=== PATIENT | female | born 1975 | race Caucasian/White ===

== ENCOUNTER 2016-09-15 10:38 | Emergency (ER) | payer BC ==
[~2016-09-15] VITALS: Ht 165.1 cm; Wt 78.2 kg
[2016-09-15 10:49] VITALS: BP 110/80; PULSE 77; RESP 15; TEMP 97.7; O2SAT 100
--- NOTE | 2016-09-15 11:02 | PD ---
HPI Chief Complaint: Cardiac Complaint Time Seen by Provider: 10:44 Travel History International Travel<30 days: No Contact w/Intl Traveler<30days: No Traveled to known affect area: No History of Present Illness HPI 41-year-old at 40 weeks and 3 days presents with palpitations and episode of SVT with the ambulance team. She was given 6 mg of adenosine and then an additional 12 mg of adenosine but this did not convert her rate. While I was talking with the patient she self converted and is now back in sinus rhythm. She now is denying any complaints. She states specifically she has no abdominal pain, vaginal bleeding, loss of fluids or other concerns. She states Dr. Rosales is her patient support assistant. She states Dr. diaz is her tax staff accountant. She states she is scheduled to have a this Tuesday. She states she is on metoprolol to help control her symptoms. PFSH Past Medical History Cardiovascular Problems: Yes (SVT ) ?: Past Surgical History Other Surgery: Yes () Social History Tobacco Use: No Allergies-Medications (Allergen,Severity, Reaction): Coded Allergies: Penicillin (Verified Allergy, Intermediate, Swelling, 09/15/16) JOINTS SWELL Sulfa (Verified Allergy, Intermediate, Swelling, 09/15/16) JOINTS SWELL Codeine (Verified Allergy, Mild, Itching, 09/15/16) Reported Meds & Prescriptions Reported Meds & Active Scripts Active Reported Metoprolol Tartrate 25 Mg Tab 25 Mg PO TID Review of Systems Except as stated in HPI: all other systems reviewed are Neg Physical Exam Narrative GENERAL: Well-nourished, well-developed patient. SKIN: Warm and dry. HEAD: Normocephalic and atraumatic. EYES: No injection or drainage. ENT: No nasal drainage noted. NECK: Supple, trachea midline. CARDIOVASCULAR: Regular rate and rhythm RESPIRATORY: Breath sounds equal bilaterally at apices. No accessory muscle use. GASTROINTESTINAL: Abdomen soft, non-tender, gravid uterus NEUROLOGICAL: Awake and alert. Motor and sensory grossly within normal limits. Normal speech. Data Data Last Documented VS Vital Signs Date Time Temp Pulse Resp B/P Pulse Ox O2 Delivery O2 Flow Rate FiO2 09/15/16 11:07 288 15 100 Nasal Cannula 2 09/15/16 11:07 96/70 09/15/16 10:49 97.7 Orders Complete Blood Count With Diff (09/15/16 10:46) Basic Metabolic Panel (Bmp) (09/15/16 10:46) Urinalysis - C+S If Indicated (09/15/16 10:46) Iv Access Insert/Monitor (09/15/16 10:46) Ecg Monitoring (09/15/16 10:46) Heart Tones (09/15/16 10:46) Magnesium (Mg) (09/15/16 10:46) Phosphorus (Po4) (09/15/16 10:46) Potassium Chloride Eff ([place] Cl Eff) (09/15/16 12:30) Labs Laboratory Tests Test 09/15/16 09/15/16 10:45 11:35 White Blood Count 5.8 TH/MM3 Red Blood Count 4.45 MIL/MM3 Hemoglobin 12.6 GM/DL Hematocrit 37.5 % Mean Corpuscular Volume 84.2 FL Mean Corpuscular Hemoglobin 28.4 PG Mean Corpuscular Hemoglobin 33.7 % Concent Red Cell Distribution Width 19.2 % Platelet Count 198 TH/MM3 Mean Platelet Volume 8.1 FL Neutrophils (%) (Auto) 52.7 % Lymphocytes (%) (Auto) 37.6 % Monocytes (%) (Auto) 8.4 % Eosinophils (%) (Auto) 0.7 % Basophils (%) (Auto) 0.6 % Neutrophils # (Auto) 3.1 TH/MM3 Lymphocytes # (Auto) 2.2 TH/MM3 Monocytes # (Auto) 0.5 TH/MM3 Eosinophils # (Auto) 0.0 TH/MM3 Basophils # (Auto) 0.0 TH/MM3 CBC Comment AUTO DIFF Differential Comment AUTO DIFF CONFIRMED Sodium Level 139 MEQ/L Potassium Level 3.3 MEQ/L Chloride Level 106 MEQ/L Carbon Dioxide Level 21.6 MEQ/L Anion Gap 11 MEQ/L Blood Urea Nitrogen 10 MG/DL Creatinine 0.87 MG/DL Estimat Glomerular Filtration 72 ML/MIN Rate Random Glucose 82 MG/DL Calcium Level 8.6 MG/DL Phosphorus Level 2.8 MG/DL Magnesium Level 1.9 MG/DL Urine Color YELLOW Urine Turbidity CLEAR Urine pH 6.5 Urine Specific [place] 1.011 Urine Protein TRACE mg/dL Urine Glucose (UA) NEG mg/dL Urine Ketones NEG mg/dL Urine Occult Blood NEG Urine Nitrite NEG Urine Bilirubin NEG Urine Urobilinogen LESS THAN 2.0 MG/DL Urine Leukocyte Esterase NEG Urine RBC LESS THAN 1 /hpf Urine WBC LESS THAN 1 /hpf Urine Squamous Epithelial <1 /hpf Cells Urine Hyaline Casts 3 /lpf Urine Mucus FEW /lpf Microscopic Urinalysis Comment CULT NOT INDICATED MDM Medical Decision Making Medical Screen Exam Complete: Yes Emergency Medical Condition: Yes Interpretation(s) CBC & BMP Diagram 09/15/16 10:45 EKG is sinus rhythm at [address] depression, aVR elevation Differential Diagnosis SVT, a flutter, A. fib, sinus tachycardia Narrative Course Patient arrived in SVT that converted to sinus rhythm as I was talking with patient. We'll check blood work and discuss with her patient support assistant. OB hospitalist came to bedside and states when patient medically cleared she can go upstairs for further monitoring potassium is 3.3, ordered 25meq and patient updated, no recurrence of svt, cleared for L&D monitoring Physician Communication Physician Communication dr rosales states patient's ST changes are related to prior tachycardia and no further testing needed dr morales saw patient in ed and states to send up for monitoring when cleared Diagnosis Primary Impression: SVT (supraventricular tachycardia) Additional Impression: Qualified Code: Z3A.40 - 40 weeks gestation of Patient Instructions: General Instructions Additional Instructions: follow with dr rosales-call to schedule Med/Other Pt SpecificInfo: No Change to Meds Disposition: 70 TRANSFER TO OTHER FACILITY (L&D) Condition: Stable Loni Fay MD Sep 15, 2016 11:02
[2016-09-15] MEDS ORDERED: METO25TA3 PO (11:06)
[2016-09-15 11:07] VITALS: BP 96/70; PULSE 84; RESP 15; O2SAT 100
--- NOTE | 2016-09-15 11:24 | PD.CONS ---
HPI Chief Complaint Palpitations Date Seen: Sep 15, 2016 Travel History International Travel<30 Days: No Contact w/Intl Traveler<30Days: No Known Affected Area: No History of Present Illness HPI 41 yo at 40w 3d, care with Dr. Larsen, presented to the Ed via EMS secondary to palpitations. Patient has a history of SVT. Presented in SVT , administered medications, but self converted. Patient reported SOB and some chest pain prior to presentation. Denies contractions/LOF/VB. Reports good FM. Para: 1 : 2 History Past Medical History Narrative Medical SVT Obstetric History Obstetric History C/S x 1 Past Surgical History Narrative Surgical C/S Family History Family History: Negative Social History Alcohol Use: No Tobacco Use: No Substance Abuse: No Allergies-Medications (Allergen,Severity, Reaction): Coded Allergies: Penicillin (Verified Allergy, Intermediate, Swelling, 09/15/16) JOINTS SWELL Sulfa (Verified Allergy, Intermediate, Swelling, 09/15/16) JOINTS SWELL Codeine (Verified Allergy, Mild, Itching, 09/15/16) Home Meds Reported Medications Metoprolol Tartrate 25 Mg Tab25 Mg PO TID #60 TAB Ref 0 09/15/16 Review of Systems Except as stated in HPI: all other systems reviewed are Neg Physical Exam Vital Signs Date Time Temp Pulse Resp B/P Pulse Ox O2 Delivery O2 Flow Rate FiO2 09/15/16 11:07 288 15 100 Nasal Cannula 2 09/15/16 11:07 84 15 96/70 100 Nasal Cannula 2 09/15/16 10:49 97.7 77 15 110/80 100 Narrative GENERAL: Well-nourished, well-developed patient. SKIN: Warm and dry. HEAD: Normocephalic and atraumatic. EYES: No scleral icterus. No injection or drainage. ENT: No nasal drainage noted. Mucous membranes pink. Airway patent. NECK: Supple, trachea midline. No JVD. CARDIOVASCULAR: Regular rate and rhythm without murmurs, gallops, or rubs. RESPIRATORY: Breath sounds equal bilaterally. No accessory muscle use. BREASTS: Bilateral exam showed no masses , no retractions, no nipple discharge. ABDOMEN/GI: Abdomen soft, non-tender, bowel sounds present, no rebound, no guarding Gravid to [-] weeks size Fundal Height: [-] GENITOURINARY: External Genitalia: intact and normal in appearance BUS glands: [-] Cervix: [-] Dilatation: [-] Effacement: [-] Station: [-] Presentation: [-] Membranes: [intact or ruptured] Uterine Contractions: [-] FHT's: Category: [140s per doppler] Baseline: [-] Reactive: [-] Variability: [-] Decels: [-] EXTREMITIES: No cyanosis or edema. BACK: Nontender without obvious deformity. No CVA tenderness. NEUROLOGICAL: Awake and alert. Motor and sensory grossly within normal limits. Five out of 5 muscle strength in all muscle groups. Normal speech. Data Data Orders Complete Blood Count With Diff (09/15/16 10:46) Basic Metabolic Panel (Bmp) (09/15/16 10:46) Urinalysis - C+S If Indicated (09/15/16 10:46) Iv Access Insert/Monitor (09/15/16 10:46) Ecg Monitoring (09/15/16 10:46) Heart Tones (09/15/16 10:46) Magnesium (Mg) (09/15/16 10:46) Phosphorus (Po4) (09/15/16 10:46) MDM Interpretation(s) at 40w 3d presenting with SVT, now resolved. Narrative Course / MDM NST Category 1 EFM- 130s, moderate variability/[place]- no contractions Plan Patient to be cleared per ED and cardiology. Patient to present to [facility] for NST. D/w Dr. Larsen. D/c home if NST is reassuring. All questions answered. Diagnosis: IUP at 40w 3d. SVT. Disposition: 01 DISCHARGE HOME Condition: Stable Jennifer Soares MD Sep 15, 2016 11:24
[2016-09-15 11:56] LABS: BLOOD, URINE NEG (NEG); COMMENT (UR) CULT NOT INDICATED; CULTURE IF INDICATED CULT NOT INDICATED; GLUCOSE,URINE NEG (NEG); HYALINE CAST, URINE 3 /lpf (RARE); KETONE, URINE NEG (NEG); MUCUS URINE FEW /lpf (OCC); NITRITE,URINE NEG (NEG); PH, URINE 6.5 (5.0-8.5); SQUAMOUS EPITHELIAL CELL URINE <1 /hpf (0-5); URINE COLOR YELLOW (YELLW/STRAW)
[2016-09-15 11:58] LABS: AUTOMATED NEUTROPHIL # 3.1 TH/MM3 (1.8-7.7); BASOPHIL % 0.6 % (0.0-2.0); EOSINOPHIL % 0.7 % (0.0-4.0); HEMATOCRIT 37.5 % (35.0-46.0); LYMPH % 37.6 % (9.0-44.0); LYMPHOCYTE # 2.2 TH/MM3 (1.0-4.8); MEAN CELL VOLUME 84.2 FL (80.0-100.0); MEAN CORPUSCULAR HEMOGLOBIN 28.4 PG (27.0-34.0); MEAN CORPUSCULAR HGB CONC 33.7 % (32.0-36.0); MONO % 8.4 % (0.0-8.0); NEUT % 52.7 % (16.0-70.0); PLATELET COUNT 198 TH/MM3 (150-450); RED BLOOD COUNT 4.45 MIL/MM3 (4.00-5.30); RED CELL DISTRIBUTION WIDTH 19.2 % (11.6-17.2); WHITE BLOOD COUNT 5.8 TH/MM3 (4.0-11.0)
[2016-09-15 11:59] LABS: HEMO FLAGS AUTO DIFF
[2016-09-15 12:17] LABS: BICARBONATE 21.6 MEQ/L (21.0-32.0); MAGNESIUM 1.9 MG/DL (1.5-2.5); POTASSIUM 3.3 MEQ/L (3.5-5.1)
[2016-09-15 12:30] LABS: SCAN/DIFF AUTO DIFF CONFIRMED
[2016-09-15] MEDS ORDERED: POTASSIUM CHLORIDE 25 MEQ EFFERVESCENT TAB PO ONE (12:30)
== END 2016-09-15 14:35 | disposition home or self-care (01) ==
LOC: NEPC 10:38 → HOBED 14:35
DX: I47.1 Supraventricular tachycardia (principal); O26.93 Pregnancy related conditions, unspecified, third trimester; Z3A.40 40 weeks gestation of pregnancy; Z88.0 Allergy status to penicillin; Z88.5 Allergy status to narcotic agent
CPT/HCPCS: 59025; 80048; 81001; 83735; 84100; 85025